=== PATIENT | male | born 1990 ===

== ENCOUNTER → 2025-09-17 14:49 | Outpatient (REF) | payer OTHER, SELFPAY | LOC: HWRAD 14:49 | PROVIDERS: ATTENDING PHYSICIAN Internal Medicine Critical Care Medicine; FAMILY PHYSICIAN Family Medicine | DX: R93.89 Abnormal findings on diagnostic imaging of other specified body structures (principal); Z01.818 Encounter for other preprocedural examination | CPT/HCPCS: 71250; 93005 ==

== ENCOUNTER 2025-09-22 06:34 | Day surgery (SDC) | payer OTHER, SELFPAY ==
[2025-09-22] VITALS (8 sets, daily range): BP systolic 100–116; BP diastolic 54–63; BMI 22.1
== END 2025-09-22 15:14 | disposition home or self-care (01) ==
LOC: GI 06:34
PROVIDERS: ATTENDING PHYSICIAN Internal Medicine Critical Care Medicine
DX: R91.8 Other nonspecific abnormal finding of lung field (principal); R05.3 Chronic cough; R93.89 Abnormal findings on diagnostic imaging of other specified body structures; J98.4 Other disorders of lung; C83.398 Diffuse large B-cell lymphoma of other extranodal and solid organ sites; C83.32 Diffuse large B-cell lymphoma, intrathoracic lymph nodes
CPT/HCPCS: 31652; 31629; 31628; 31624; 31623; 31627; 31654; 71045; 76000; 87015; 87070; 87102; 87116; 87205; 88112; 88172; 88173; 88177; 88305; 88312; 88333; 88334; 88341; 88342; 94640; C1713; C1887

== ENCOUNTER → 2025-09-30 11:00 | Outpatient (REF) | payer OTHER, SELFPAY | LOC: RAD 11:00 | PROVIDERS: ATTENDING PHYSICIAN Internal Medicine Critical Care Medicine; FAMILY PHYSICIAN Family Medicine | DX: R93.89 Abnormal findings on diagnostic imaging of other specified body structures (principal); R09.1 Pleurisy; R06.02 Shortness of breath | CPT/HCPCS: 71046 ==